=== PATIENT | female | born 1945 | race Caucasian/White ===

== ENCOUNTER → 2016-06-24 | Outpatient (CLI) | payer MEDICARE ==
[~2016-06-24] MED LIST: DOBUTamine DRIP for NUC MED 500 MG in DEXTROSE/WATER 1 250ML.BAG IV ONE
--- NOTE | 2016-06-24 11:47 | ECHOS ---
DATE OF SERVICE: 06/24/2016 AGE: 70Y SEX: F HT: 63" WT: 200 lbs. Protocol Yordy: Others: Dobutamine Stress Echo Stage: 3 Dur. of Exercise: 6:30 *Heart Rate Blood Pressure *Rest: 81 Rest: 138/78 * *Max. Achieved: 136 Maximum BP: 165/64 85% PMHR: 126 100% PMHR: 148 *METS: - INDICATIONS: Preoperative. MEDICATIONS: Lantus, levothyroxine, gabapentin, Klor-Con, Glyburide, lisinopril, pravastatin, hydrocodone. The test is being done to evaluate cardiac status. Baseline EKG showed sinus rhythm with evidence of right bundle branch block pattern. Blood pressure at rest is 138/78 with pulse of 81. A standard dose of dobutamine was initiated and titrated to maximum of 20 mcg achieving a maximum heart rate of 136 with a blood pressure of 165/64. EKGs did not reveal any significant changes to suggest ischemia. Baseline echo images done with contrast showed normal wall motion and thickening and the exercise echo images done with contrast showed augmentation and wall motion and thickening in all the segments. FINAL IMPRESSION: 1. Negative dobutamine stress test though baseline EKG showed right bundle branch block pattern. 2. Negative dobutamine contrast stress echo.
== END | disposition home or self-care (01) ==
LOC: RADNMMAIN 09:55
PROVIDERS: ATTEND Surgery
DX: I74.09 Other arterial embolism and thrombosis of abdominal aorta (principal)
CPT/HCPCS: 93017; C8928; J1250; Q9957; 93350